=== PATIENT | male | born 1975 | race Hispanic/Latino ===

== ENCOUNTER → 2025-03-24 | Day surgery (SDC) | payer OTHER ==
[2025-03-16 15:54] LABS: BASOPHILS % 0.5 % (0.0-1.0); EOSINOPHILS % 1.1 % (0.0-6.0); LYMPHOCYTES % 22.8 % (18.0-39.1); MONOCYTES % 9.6 % (4.4-11.3); NEUTROPHILS % 65.7 % (38.7-80.0); RED CELL DISTRIBUTION WIDTH 12.6 % (11.7-14.4)
[2025-03-16 16:22] LABS: EST GLOMERULAR FILTRATION RATE 82.0 ML/MIN (>=60)
[~2025-03-24] MED LIST: AMLODIPINE BESY10 MG PO; CEFTRIAXONE 1 GM VIAL ONE; DEXAMETHASONE SOD PHOS INJ 4 MG/ML SDV ONE; FENTANYL CITRATE/PF 100MCG/2 ML INJ ONE; LIDOCAINE HCL 2% LOCAL INJ 5 ML SDV VIAL INJ ONE; MIDAZOLAM HCL 2 MG/2 ML VIAL ONE; ONDANSETRON HCL INJ 2MG/ML 2ML 2 MG/ML VIAL ONE; PROPOFOL IV EMULSION 10 MG/ML 20 ML VIAL ONE
[2025-03-24] MEDS: CEFTRIAXONE 1 GM VIAL ONE (06:30)
[2025-03-24] MEDS: SODIUM CHLORIDE 0.9% 1000ML 1,000 ML ONE (07:24)
[2025-03-24 08:30] VITALS: TEMP 98.4
[2025-03-24] MEDS: PHENAZOPYRIDINE HCL 100 MG TAB ONE (08:45)
[2025-03-24] MEDS: ACETAMINOPHEN/CODEINE 300MG - 30MG TAB ONE (08:58)
[2025-03-24 09:04] VITALS: BP 119/78; PULSE 81; RESP 18; O2SAT 97
== END | disposition home or self-care (01) ==
LOC: OR 06:00
PROVIDERS: ATTEND Urology
DX: N20.1 Calculus of ureter (principal); N28.89 Other specified disorders of kidney and ureter; N13.30 Unspecified hydronephrosis; N35.812 Other bulbous urethral stricture, male; N35.819 Other urethral stricture, male, unspecified site; N40.0 Benign prostatic hyperplasia without lower urinary tract symptoms; G47.33 Obstructive sleep apnea (adult) (pediatric); I10 Essential (primary) hypertension; F41.9 Anxiety disorder, unspecified; Z01.810 Encounter for preprocedural cardiovascular examination; Z01.812 Encounter for preprocedural laboratory examination; Z01.818 Encounter for other preprocedural examination; Z79.899 Other long term (current) drug therapy
CPT/HCPCS: 36415; 52300; 52356; 74018; 74420; 80053; 83970; 84550; 85025; 93005; C1758; C2617; J0696; J1100; J2003; J2250; J2405; J2704; J3010; J7030